=== PATIENT | female | born 1930 | race Caucasian/White ===

== ENCOUNTER 2018-06-04 10:41 | Observation (INO) | payer MEDICARE, BC ==
[2018-06-04] MEDS ORDERED: Ondansetron HCl/PF 4 MG/2 ML Vial ONE ×2 (10:48→14:15)
[2018-06-04 11:31] LABS: Band 8 % (5-11); Hemoglobin 15.2 g/dL (12.0-16.0); Lymphocytes 10 % (21-51); MDiff Complete? YES; Mean Corpuscular Volume 88.2 fL (78.0-98.0); Mean Platelet Volume 7.2 fL (7.4-10.4); Monocytes 7 % (0-10); Neutrophil 75 % (42-75); Platelet Count 159 thou/uL (130-400); RBC Distribution Width 12.6 % (11.5-14.5); Red Blood Cell (RBC) Count 5.06 mill/uL (4.20-5.40); White Blood Cell (WBC) Count 13.9 thou/uL (4.8-10.8)
[2018-06-04 11:36] LABS: ALT (SGPT) 14 U/L (8-55); AST (SGOT) 19 U/L (5-34); Albumin 4.3 g/dL (3.4-4.8); Alkaline Phosphatase 87 U/L (40-150); Anion Gap 14 mmol/L (10-20); BUN (Urea Nitrogen) 11 mg/dL (9.8-20.1); Bilirubin, Total 1.6 mg/dL (0.2-1.2); Calc. Creatinine Clearance 0 mL/min (70-130); Calcium 10.5 mg/dL (7.8-10.44); Carbon Dioxide 25 mmol/L (23-31); Chloride 104 mmol/L (98-107); Estimated GFR-MDRD 65; Globulin 3.5 g/dL (2.4-3.5); Glucose 139 mg/dL (83-110); Lipase 128 U/L (8-78); Potassium 3.8 mmol/L (3.5-5.1); Protein, Total 7.8 g/dL (6.0-8.3); Sodium 139 mmol/L (136-145)
--- NOTE | 2018-06-04 11:57 | RAD ---
ACUTE ABDOMINAL SERIES: INDICATION: Constipation. COMPARISON: Prior exam dated 03/27/10. FINDINGS: As seen on the comparison examination is a very large hiatal hernia. There is bibasilar atelectasis. Bowel gas pattern is nonspecific but without evidence of obstruction. There is a moderate amount o f retained stool within the region of the colon and rectum. There is diffuse osteopenia and scattere d degenerative change. Calcification within the left upper quadrant of the abdomen is stable and jayde picious for a small splenic artery aneurysm measuring approximately 9.6 mm. This is stable to the pr ior exam. IMPRESSION: 1. Moderate amount of retained stool within the colon. 2. Large hiatal hernia with bibasilar atelectasis. 3. Calcification within the left upper quadrant of the abdomen suspicious for a small splenic artery aneurysm. This is better seen on the CT evaluation dated 07/23/08. POS: [facility]
[2018-06-04] MEDS ORDERED: Bisacodyl 10 MG SUPP ONE (12:57)
[2018-06-04 15:18] LABS: Bilirubin Negative (Negative); Blood, Urine Small (Negative); Clarity CLEAR (Clear); Glucose, Urine (Dipstick) Negative (Negative); Leukocyte Moderate (Negative); Nitrite Negative (Negative); Protein, Urine (Dipstick) 30 mg/dL (Neg-Trace); Specific Gravity, Urine 1.015 (1.002-1.036); pH, Urine 6.5 (5.0-9.0)
[2018-06-04 15:21] LABS: Bacteria/HPF None Seen HPF (None Seen); Hyaline Casts/LPF 0-3 HYALINE CAST LPF (0-3 Hyaline); Pathc Cast-AUWi Flag 0.72 (0-2.49); WBC/HPF 21-50 HPF (0-3)
[2018-06-04 15:23] LABS: Renal Epithelial None Seen HPF (0-3); Transitional Epithelial NONE SEEN HPF (0-3)
[2018-06-04] MEDS ORDERED: Fleet Enema 133 ML BOT PR SCH (15:30)
[2018-06-04] MEDS ORDERED: cefTRIAXone\\ROCEPHIN 2 GM in Sodium Chloride 0.9% 100 ML IVPB ONE (15:45)
[2018-06-04] MEDS ORDERED: cloNIDine 0.1 MG TAB ONE (15:49)
[2018-06-04] MEDS ORDERED: Bisacodyl 10 MG SUPP PR PRN (18:02)
[2018-06-04] MEDS ORDERED: Ondansetron HCl/PF 4 MG/2 ML Vial IVP PRN (18:02)
[2018-06-04] MEDS ORDERED: Ondansetron ODT 4 MG TAB PO PRN (18:02)
[2018-06-04] MEDS ORDERED: hydrALAZINE 20 MG/ML VIAL SLOW IVP PRN (18:02)
[2018-06-04] MEDS ORDERED: Polyethylene Glycol 3350 17 GM Packet PO SCH (18:15)
[2018-06-04] MEDS ORDERED: Enoxaparin Sodium 30 MG/0.3 ML SYRINGE SC SCH (18:15)
[2018-06-04 18:18] VITALS: BMI 23.6
[2018-06-04] MEDS: Sodium Chloride 0.9% 1,000 ML IV SCH (19:55)
[2018-06-04] MEDS: Famotidine 20 MG TAB PO SCH (19:59)
[2018-06-05 04:30] LABS: #Eosinphils 0.1 thou/uL (0.0-0.7); #Lymphocytes 1.6 thou/uL (1.20-3.40); #Monocytes 0.9 thou/uL (0.11-0.59); #Neutrophils 8.4 thou/uL (1.40-6.50); %Basophils 0.2 % (0.0-1.0); %Eosinophils 1.2 % (0.0-10.0); %Lymphocytes 14.1 % (21.0-51.0); %Monocytes 8.4 % (0.0-10.0); Hemoglobin 13.1 g/dL (12.0-16.0); Mean Corpuscular HGB CONC 34.1 g/dL (32.0-36.0); Mean Corpuscular Hemoglobin 30.3 pg (27.0-31.0); Mean Corpuscular Volume 88.7 fL (78.0-98.0); Mean Platelet Volume 7.9 fL (7.4-10.4); Platelet Count 139 thou/uL (130-400); RBC Distribution Width 12.4 % (11.5-14.5); Red Blood Cell (RBC) Count 4.33 mill/uL (4.20-5.40); White Blood Cell (WBC) Count 11.1 thou/uL (4.8-10.8)
[2018-06-05 04:53] LABS: Anion Gap 17 mmol/L (10-20); BUN (Urea Nitrogen) 11 mg/dL (9.8-20.1); Calc. Creatinine Clearance 48 mL/min (70-130); Calcium 9.3 mg/dL (7.8-10.44); Carbon Dioxide 17 mmol/L (23-31); Chloride 108 mmol/L (98-107); Estimated GFR-MDRD 78; Glucose 116 mg/dL (83-110); Potassium 3.7 mmol/L (3.5-5.1); Sodium 138 mmol/L (136-145)
[2018-06-05] MEDS: Polyethylene Glycol 3350 17 GM Packet PO SCH ×2 (09:32→20:37)
[2018-06-05] MEDS: Famotidine 20 MG TAB PO SCH (09:32)
[2018-06-05] MEDS: Sodium Chloride 0.9% 1,000 ML IV SCH ×2 (09:36→23:14)
[2018-06-05] MEDS ORDERED: Amlodipine 5 MG TAB PO SCH (10:15)
[2018-06-05] MEDS: Amlodipine 5 MG TAB PO SCH (10:24)
[2018-06-05] MEDS ORDERED: Fleets Phospha Soda 45 ml Bottle PO PRN (14:09)
[2018-06-05] MEDS ORDERED: ISOVUE-370 76%-LOCM 1 ML ONE (14:55)
[2018-06-05] MEDS ORDERED: cefTRIAXone\\ROCEPHIN 1 GM in Sodium Chloride 0.9% 100 ML IVPB SCH (16:00)
[2018-06-05] MEDS ORDERED: Magnesium Citrate 300 ML BOT PO SCH (16:15)
--- NOTE | 2018-06-05 19:59 | CT ---
CT ABDOMEN AND PELVIS WITH IV CONTRAST 06/05/18 HISTORY: Constipation. Abdominal pain. Patient states bowel obstruction. History of hysterectomy as well as ap pendectomy. COMPARISON: 03/27/10. FINDINGS: There is an area of inflammatory stranding seen in the region of the central mesentery which does abu t the inferior aspect of the head and uncinate process of the pancreas and surrounds mesenteric vesse ls in this region. This could be related to focal pancreatitis. No fluid collection is seen to sugges t an abscess. There is an increased density focus seen within the gallbladder lumen which could be related to eithe r a prominent fold in the gallbladder, possibly a gallbladder calculus. There is a large hiatal hernia with the majority of the stomach above the level of the hemidiaphragm s. This was also noted on the prior exam as well as study in 2007. There is bibasilar atelectasis with tiny bilateral pleural effusions. The entire hiatal hernia/stomac h is not imaged on this exam. Calcified granulomas seen in the spleen. A subcentimeter too small to characterize hypodense lesion is again seen in the inferior pole left ki dney as well as in the mid portion right kidney. The liver, bilateral adrenal glands and decompressed urinary bladder have a normal CT appearance. There is colonic diverticulosis present. There are loops of small bowel lateral to the descending col on. Moderate amount of retained fecal material is seen involving the majority of the colon. No dilated loops of small bowel are seen. There are decompressed loops of fluid filled small bowel id entified. No free intraperitoneal gas is seen. Prominent vascular calcifications are seen in the abdominal aorta involving the iliac arteries. There is evidence of hysterectomy. Again noted is prominent Schmorl's node in the superior end plate of the L4 vertebral body. Degenerat gurdeep changes are seen in the spine. IMPRESSION: 1. Prominent area of inflammatory stranding seen inferior to the level of the pancreas which abu ts the uncinate process and head of the pancreas with the area of inflammatory stranding surrounding mesenteric vessels. The findings could potentially be related to focal pancreatitis, and correlation with laboratory values is recommended. Follow up evaluation also suggested. 2. Increased density focus within the gallbladder lumen which could be related to prominent fold in the gallbladder versus gallbladder calculus. This cannot be further evaluated on this exam. 3. Large hiatal hernia incompletely imaged. However, this large hiatal hernia was present on naatlia or exams in 2007 and 2009. 4. Tiny bilateral pleural effusions with associated bibasilar atelectasis. 5. Constipation and colonic diverticulosis.. 6. Fluid filled loops of small bowel, but no dilated loops of small bowel are present. 7. Hysterectomy. 8. Small amount of free fluid in the pelvis. POS: [facility]
[2018-06-05] MEDS: Acetaminophen 325 MG TAB PO PRN (21:58)
[2018-06-06] MEDS: Amlodipine 5 MG TAB PO SCH (07:55)
[2018-06-06] MEDS: Polyethylene Glycol 3350 17 GM Packet PO SCH (07:56)
[2018-06-06] MEDS: Acetaminophen 325 MG TAB PO PRN (07:57)
[2018-06-06] MEDS ORDERED: Famotidine 20 MG TAB PO SCH (09:00)
[2018-06-06 13:44] VITALS: BP 130/61; TEMP 97.6
--- NOTE | 2018-06-06 14:12 | PDOC.PN ---
- Subjective Encounter Start Date: 06/05/18 Encounter Start Time: 18:30 Pt upset i wasnt able to get to her earlier, no BM since the liquid one right after admit, tolerating miralax, but increased discomfort, tired a Mag Citrate and now with increased belchng. CT requested and pending No Fever, but tmax in 99.X range, no CP, no SOB. All systems reviewed and neg x as per HPI - Objective Resuscitation Status: Resuscitation Status FULL:Full Resuscitation MAR Reviewed: Yes Vital Signs & Weight: Vital Signs (12 hours) Temp Pulse Resp BP BP Pulse Ox 06/06/18 13:38 97.6 F 78 18 130/61 95 06/06/18 11:59 98.4 F 83 16 126/59 L 94 L 06/06/18 10:05 98.0 F 79 18 133/67 95 06/06/18 08:00 99.2 F 84 16 06/06/18 07:55 79 177/62 H 06/06/18 07:36 99.2 F 84 16 200/91 H 95 06/06/18 04:30 98.7 F 79 18 177/62 H 95 Weight Admit Weight 121 lb 3.2 oz Weight 121 lb 3.2 oz I&O: 06/05/18 06/06/18 06/07/18 06:59 06:59 06:59 Intake Total 1181 2210 Output Total 300 1100 600 Balance 881 1110 -600 Result Diagrams: 06/05/18 03:34 06/05/18 03:34 Radiology Reviewed by me: Yes Phys Exam - Physical Examination Constitutional: NAD HEENT: PERRLA, moist MMs, sclera anicteric, oral pharynx no lesions Neck: no nodes, no JVD, supple, full ROM Respiratory: no wheezing, no rales, no rhonchi, clear to auscultation bilateral Cardiovascular: RRR, no significant murmur Gastrointestinal: soft scant BS, nontender, distended, tympanitic Musculoskeletal: no edema, pulses present Neurological: non-focal, normal sensation, moves all 4 limbs Lymphatic: no nodes Psychiatric: normal affect, A&O x 3 Skin: no rash, normal turgor, cap refill <2 seconds Dx/Plan (1) Constipation Code(s): K59.00 - CONSTIPATION, UNSPECIFIED Status: Acute Qualifiers: Constipation type: unspecified constipation type Qualified Code(s): K59.00 - Constipation, unspecified Comment: i think may be related to hiatal hernia, CT to r/o obstruction (2) HTN (hypertension) Code(s): I10 - ESSENTIAL (PRIMARY) HYPERTENSION Status: Chronic Qualifiers: Hypertension type: essential hypertension Qualified Code(s): I10 - Essential (primary) hypertension (3) Acute cystitis Code(s): N30.00 - ACUTE CYSTITIS WITHOUT HEMATURIA Status: Acute Qualifiers: Hematuria presence: without hematuria Qualified Code(s): N30.00 - Acute cystitis without hematuria - Plan cont current plan of care, plan discussed w/ family, continue antibiotics, PT/OT , out of bed/ambulate * .
== END 2018-06-06 15:35 | disposition home or self-care (01) ==
LOC: ERS 10:41 → 2SW 17:41
PROVIDERS: ADMIT Internal Medicine Infectious Disease; ATTEND Internal Medicine Infectious Disease
DX: K59.00 Constipation, unspecified (principal); N30.00 Acute cystitis without hematuria; I10 Essential (primary) hypertension; Z88.5 Allergy status to narcotic agent; Z79.899 Other long term (current) drug therapy
CPT/HCPCS: 74022; 74177; 80048; 80053; 83690; 85025 ×2; 96361 ×3; 96365; 96366; 96372; 96375 ×2; 96376; 97139 ×2; 99285; G0378 ×2; 36415; 81003; 81015; J0360; J0696; J1650; J2405; J7050

== ENCOUNTER 2018-06-28 12:25 | Outpatient (CLI) | payer MEDICARE, BC | END 2018-06-28 12:26 | disposition home or self-care (01) | LOC: BICMAMMO 12:25 | PROVIDERS: ATTEND Family Medicine | DX: Z12.31 Encounter for screening mammogram for malignant neoplasm of breast (principal); Z80.3 Family history of malignant neoplasm of breast | CPT/HCPCS: 77063; 77067 ==

== ENCOUNTER 2018-10-01 14:34 | Inpatient (IN) | payer MEDICARE, BC ==
[2018-10-01] MEDS ORDERED: Iopamidol 370 76% 100 ML VIAL ONE (15:03)
[2018-10-01 15:32] LABS: Hemoglobin 14.5 g/dL (12.0-16.0); Mean Corpuscular HGB CONC 33.9 g/dL (32.0-36.0); Mean Corpuscular Hemoglobin 30.1 pg (27.0-31.0); Mean Corpuscular Volume 88.6 fL (78.0-98.0); Mean Platelet Volume 8.4 fL (7.4-10.4); Platelet Count 127 thou/uL (130-400); RBC Distribution Width 13.1 % (11.5-14.5); Red Blood Cell (RBC) Count 4.84 mill/uL (4.20-5.40); White Blood Cell (WBC) Count 9.9 thou/uL (4.8-10.8)
[2018-10-01 15:50] LABS: Band 49 % (5-11); Dohle Bodies SLIGHT; Lymphocytes 4 % (21-51); MDiff Complete? YES; Metamyelocyte 25 % (0-0); Monocytes 3 % (0-10); Myelocyte 3 % (0-0); Neutrophil 16 % (42-75); PLT Morphology Comment Appears Decreased; RBC Morphology Normal; Reflex for Review?? YES; Vacuoles SLIGHT
[2018-10-01 15:54] LABS: ALT (SGPT) 12 U/L (8-55); AST (SGOT) 26 U/L (5-34); Albumin 3.6 g/dL (3.4-4.8); Alkaline Phosphatase 68 U/L (40-150); Anion Gap 18 mmol/L (10-20); BUN (Urea Nitrogen) 26 mg/dL (9.8-20.1); Bilirubin, Total 1.2 mg/dL (0.2-1.2); Calc. Creatinine Clearance 0 mL/min (70-130); Calcium 9.2 mg/dL (7.8-10.44); Carbon Dioxide 18 mmol/L (23-31); Chloride 106 mmol/L (98-107); Estimated GFR-MDRD 41; Globulin 2.3 g/dL (2.4-3.5); Glucose 153 mg/dL (83-110); Potassium 3.9 mmol/L (3.5-5.1); Protein, Total 5.9 g/dL (6.0-8.3); Sodium 138 mmol/L (136-145)
--- NOTE | 2018-10-01 15:59 | RAD ---
PORTABLE AP CHEST X-RAY: 10/01/2018 HISTORY: Cough. Congestion. Shortness of breath with exertion. COMPARISON: 06/04/2018 FINDINGS: Again noted is a very large hiatal hernia with the majority of the stomach again seen above the level of the hemidiaphragms and at each lung base. There are now increased interstitial opacities seen in the region of the lingula and at the left lung base, which were not present on the prior study and a re worrisome for developing pneumonia or aspiration pneumonitis. There is atelectasis present at eac h lung base due to the large hiatal hernia. There is a questionable tiny left pleural effusion. The cardiac silhouette is at the upper limits of normal in size. Vascular calcifications are seen in th e thoracic aorta. The pulmonary vasculature is within normal limits. Osteopenia is present. IMPRESSION: 1. Interstitial and patchy parenchymal changes at the left lung base, not seen on the prior study, w orrisome for pneumonia or aspiration pneumonitis. Followup to resolution is recommended. 2. Large hiatal hernia. 3. Osteopenia. POS: [facility]
[2018-10-01 16:42] LABS: CKMB 3.2 ng/mL (0-6.6)
[2018-10-01 17:06] LABS: Bilirubin Moderate (Negative); Blood, Urine Negative (Negative); Clarity CLEAR (Clear); Glucose, Urine (Dipstick) Negative (Negative); Leukocyte Negative (Negative); Nitrite Negative (Negative); Protein, Urine (Dipstick) 30 mg/dL (Neg-Trace)
[2018-10-01 17:08] LABS: Bacteria/HPF None Seen HPF (None Seen); RBC/HPF 0-3 HPF (0-3); WBC/HPF 0-3 HPF (0-3)
--- NOTE | 2018-10-01 17:08 | CT ---
CT ARTERIOGRAM CHEST WITH IV CONTRAST AND 3D MIP IMAGING: HISTORY: Dyspnea. Chest pain. FINDINGS: There is good contrast opacification of the pulmonary arteries and the thoracic aorta with normal bra nching of the great vessels. Reactive appearing lymph nodes are scattered about the mediastinum, mos t notably at the right hilum and subcarinal level. A large hiatal hernia. Prominent atelectasis at the lung bases. No evidence of pneumothorax. Calcification throughout the arterial structures. IMPRESSION: 1. No CT evidence of pulmonary embolus. 2. Large hiatal hernia. 3. Atherosclerosis. POS: [facility]
[2018-10-01 17:12] LABS: Specific Gravity, Urine 1.049 (1.002-1.036)
[2018-10-01 17:17] LABS: Hyaline Casts/LPF >50 HYALINE CAST LPF (0-3 Hyaline); Pathc Cast-AUWi Flag 9.15 (0-2.49); Renal Epithelial 0-3 HPF (0-3)
[2018-10-01] MEDS ORDERED: Calcium Carbonate 500 MG ChewTAB PO PRN (20:20)
[2018-10-01] MEDS ORDERED: Acetaminophen 650 MG Suppository PR PRN (20:20)
[2018-10-01] MEDS ORDERED: Ondansetron ODT 4 MG TAB PO PRN (20:20)
[2018-10-01] MEDS ORDERED: Bisacodyl 5 MG TAB PO PRN (20:20)
[2018-10-01] MEDS ORDERED: Ondansetron PF 4 MG/2 ML Vial IVP PRN (20:20)
[2018-10-01] MEDS ORDERED: Acetaminophen 325 MG TAB PO PRN (20:20)
[2018-10-01] MEDS ORDERED: Zolpidem Tartrate 5 MG TAB PO PRN (20:20)
[2018-10-01] MEDS ORDERED: Sodium Chloride 0.9% 1,000 ML IV SCH (20:30)
[2018-10-01] MEDS ORDERED: Famotidine/PF 20 mg/2ml Vial SLOW IVP SCH (21:00)
--- NOTE | 2018-10-01 21:23 | HP ---
CHIEF COMPLAINT: Shortness of breath and cough. HISTORY OF PRESENT ILLNESS: This is an 88-year-old female with past medical history significant for hypertension, who is presenting with shortness of breath and productive cough. Per the patient, she started having this upper respiratory symptoms prior to the day of admission. The patient stated that she was having runny nose, congestion, and mild cough and this cough has worsened and now she is having greenish productive sputum. The patient also states that she has been having worsening shortness of breath with fever in the past 24 hours on the day of admission. The patient stated that she is feeling very sick and she is having chills, fevers, decreased appetite. At this time, the patient denies any chest pain, palpitations, abdominal pain, vomiting, diarrhea, constipation, dysuria, hematuria, hematochezia, melena. Of note, the patient was recently seen in our hospital on 06/04/2018 and the patient was diagnosed with constipation, UTI; the patient was treated and the patient improved. The patient also states that she recently fell and injured her right patella and the patient was put in a brace. Dr. Liz, who is the Orthopedics, he is the doctor that sees her and stated that she is supposed to come, follow up in three days, so that an x-ray can be captured to see the progression of the healing process for the patient. REVIEW OF SYSTEMS: Positive for cough, fever, chills, nausea, shortness of breath, otherwise as documented in the HPI. All other systems were reviewed and are negative. PAST MEDICAL HISTORY: Hypertension. FAMILY HISTORY: Reviewed and noncontributory to this visit. SURGICAL HISTORY: Appendectomy, hysterectomy. SOCIAL HISTORY: The patient denies any alcohol use, denies any illicit drugs, and patient denies any smoking history. CURRENT MEDICATIONS: The patient takes; 1. Isosorbide mononitrate 30 mg. 2. Amlodipine 2.5 mg. 3. Aspirin 81 mg. ALLERGIES: THE PATIENT IS ALLERGIC TO CODEINE. PHYSICAL EXAMINATION: VITAL SIGNS: The patient's blood pressure is 123/64, heart rate of 92, respiratory rate of 28, O2 saturation of 90, temperature of 98.7. GENERAL: The patient is alert, awake, oriented x3, not in acute distress. The patient is able to speak to me in full sentences. The patient has 2 L nasal cannula in place. The patient appears her stated age. HEENT: Normocephalic, atraumatic. Pupils are equally round and reactive to light. Extraocular movements are intact. No scleral icterus. No conjunctival pallor. Mucous membranes are dry. NECK: Trachea is midline. Full range of motion. No JVD. Supple. LUNGS: The patient has bilateral lower extremity crackles. The patient has some crackles that can be auscultated at the anterior lung yancey. CARDIAC: Positive S1 and S2. Regular rate and rhythm. No murmurs, no gallops, no rubs appreciated. ABDOMEN: Soft, nontender, and nondistended. Positive bowel sounds in all quadrants. EXTREMITIES: The patient has a right extremity brace in place. The patient has reduced range of motion at the right lower extremity. There is no edema noted bilaterally at the extremities. The patient has good pulses bilaterally at the lower extremities bilaterally. Upper extremity, 5/5 upper extremity strength. Good pulses bilaterally. No edema noted. PSYCHIATRIC: The patient is alert and oriented x3. Normal affect. NEUROLOGIC: Cranial nerves 2 through 12 grossly intact. No neurologic deficits noted. LABORATORY DATA: WBC is 9.9, hemoglobin is 14.5, hematocrit is 42.9, platelet count is 127. D-dimers of 3.66. Sodium is 138, potassium is 3.9, chloride is 106, carbon dioxide of 18, anion gap of 18, BUN is 26, creatinine is 1.23. Lactic acid of 4.0, glucose of 153, troponin of 1.090, BNP of 374.0. Urinalysis negative for leukocyte esterases and negative for nitrites. IMAGING DATA: 1. Chest x-ray shows large hiatal hernia, interstitial and patchy parenchymal change at the left lung base, not seen on the prior study, worrisome for pneumonia or aspiration pneumonitis. 2. CTA of the chest showed no pulmonary embolism. ASSESSMENT AND PLAN: This is an 88-year-old female being admitted for; 1. Community-acquired pneumonia. At this point, the patient has been started on Levaquin. We are going to start the patient on azithromycin and Rocephin at this time. We are going to continue with the sepsis protocol. We will continue patient on gentle hydration. We will give patient p.r.n. medication for pain and fever. We will follow up on cultures and we will tailor antibiotics to culture results. We will continue to work the patient up and we will give the patient a breathing treatment. 2. Non-ST elevation myocardial infarction likely due to demand ischemia. At this point, we are going to continue the patient on antibiotics and we will give the patient IV hydration. 3. Acute kidney injury likely due to dehydration. We are going to continue the patient on gentle hydration. We have ordered a renal panel, we will follow up on renal panel and we will monitor the patient's creatinine. We will hold all nephrotoxic drugs. 4. Hypertension. At this point, the patient's blood pressure is normotensive. We will monitor the patient's blood pressure closely and we will treat the patient's blood pressure accordingly. 5. Deep venous thrombosis, gastrointestinal prophylaxis. DISPOSITION: At this point, we will also get Orthopedics to come and see the patient. The patient states that her appointment to see her Orthopedic doctor was Monday, but since the patient is in the hospital, patient might likely not make it to that appointment. The patient's Orthopedics come to this hospital; therefore, we are going to consult Orthopedics to come and see the patient while the patient is here in the hospital. Job ID: [id number]
[2018-10-01 21:31] LABS: Troponin I 0.816 ng/mL (< 0.028)
[2018-10-01 22:56] LABS: Critical Call Chem Troponin I RESULT DECREASING; Troponin I 0.684 ng/mL (< 0.028)
[2018-10-01] MEDS: cefTRIAXone\\ROCEPHIN 1 GM in Sodium Chloride 0.9% 100 ML IVPB SCH (23:33)
[2018-10-02 00:18] VITALS: BMI 23.2
[2018-10-02] MEDS: Azithromycin 500 MG in Sodium Chloride 0.9% 250 ML 250 ML IVPB SCH ×2 (01:14→23:07)
[2018-10-02 05:38] LABS: Hemoglobin 12.8 g/dL (12.0-16.0); Mean Corpuscular HGB CONC 33.1 g/dL (32.0-36.0); Mean Corpuscular Hemoglobin 29.9 pg (27.0-31.0); Mean Corpuscular Volume 90.3 fL (78.0-98.0); Mean Platelet Volume 8.1 fL (7.4-10.4); Platelet Count 98 thou/uL (130-400); RBC Distribution Width 12.9 % (11.5-14.5); Red Blood Cell (RBC) Count 4.27 mill/uL (4.20-5.40)
[2018-10-02 05:58] LABS: Albumin 2.8 g/dL (3.4-4.8); Anion Gap 13 mmol/L (10-20); BUN (Urea Nitrogen) 19 mg/dL (9.8-20.1); BUN/Creatinine Ratio 22.35; Calc. Creatinine Clearance 40 mL/min (70-130); Calcium 8.9 mg/dL (7.8-10.44); Carbon Dioxide 20 mmol/L (23-31); Chloride 109 mmol/L (98-107); Estimated GFR-MDRD 63; Glucose 114 mg/dL (83-110); Potassium 3.6 mmol/L (3.5-5.1); Sodium 138 mmol/L (136-145)
[2018-10-02 06:03] LABS: Phosphorus 1.7 mg/dL (2.3-4.7)
[2018-10-02 06:16] LABS: Band 31 % (5-11); Lymphocytes 9 % (21-51); MDiff Complete? YES; Monocytes 1 % (0-10); Neutrophil 59 % (42-75); PLT Morphology Comment Appears Decreased; RBC Morphology Normal
[2018-10-02] MEDS ORDERED: Potassium Phosphate 30 MMOL in Sodium Chloride 0.9% 500 ML IVPB SCH (07:00)
[2018-10-02] MEDS ORDERED: Vancomycin HCl 1 GM in Premix Bag 1 BAG IVPB SCH (09:00)
[2018-10-02] MEDS: Multivitamin W/ Minerals 1 TAB PO SCH (09:02)
[2018-10-02] MEDS: Famotidine 20 MG TAB PO SCH (09:02)
[2018-10-02] MEDS: Amlodipine 5 MG TAB PO SCH (09:02)
[2018-10-02] MEDS: Famotidine/PF 20 mg/2ml Vial SLOW IVP SCH (09:07)
[2018-10-02] MEDS: Vancomycin HCl 750 MG in Sodium Chloride 0.9% 250 ML 250 ML IVPB SCH (09:49)
[2018-10-02] MEDS: Enoxaparin Sodium 30 MG/0.3 ML SYRINGE SC SCH (10:19)
--- NOTE | 2018-10-02 15:30 | CON ---
DATE OF CONSULTATION: 10/02/2018 REASON FOR CONSULTATION: Non-STEMI. PRIMARY BATCH DUMPER: Travon Johnston MD. HISTORY OF PRESENT ILLNESS: Ms. Mehta is a very pleasant 88-year-old white female, who comes to the hospital for shortness of breath, cough, and green sputum. She had noted that for the last 24 to 48 hours, she developed a fever with cough, green sputum. This is going around in her family members as well. She came in as she was feeling very sick, having chills and decreased appetite. Denies any chest pain, tightness, or pressure. No shortness of breath. No lightheadedness or palpitations. No syncope or presyncope. She was admitted, diagnosed with bronchitis, possible pneumonia, and troponins were drawn, which were elevated, so Cardiology has been consulted for this. PAST MEDICAL HISTORY: Hypertension. PAST SURGICAL HISTORY: 1. Appendectomy. 2. Hysterectomy. SOCIAL HISTORY: No alcohol, tobacco, or drugs. OUTPATIENT MEDICATIONS: 1. Imdur 30 mg a day. 2. Amlodipine 2.5 mg a day. 3. Aspirin 81 a day. ALLERGIES: CODEINE. FAMILY HISTORY: No early coronary artery disease. REVIEW OF SYSTEMS: A 12-point review of systems is done, is all negative unless stated in the history of present illness. PHYSICAL EXAMINATION: VITAL SIGNS: Temperature 98.8, pulse 98, respiratory rate 18, saturations 94% on 3 L, blood pressure 107/53. GENERAL: Awake, alert, and oriented x3, in no distress. HEENT: Normocephalic and atraumatic. NECK: Supple. LUNGS: Coarse breath sounds bilaterally. CARDIOVASCULAR: S1 and S2. No S3 or S4. There is a very soft grade 2/6 systolic murmur in the right upper sternal border. ABDOMEN: Soft. Positive bowel sounds. EXTREMITIES: No edema. SKIN: Warm and dry. LABORATORY DATA: Laboratory work was reviewed. CBC unremarkable except for elevated bands at 49% on admission. Chemistries unremarkable. Troponins are 1.0, 0.8, and 0.6. Albumin of 2.8, phosphorus of 1.7, normal calcium. Lactic acid was 4.0 on admission. UA had moderate bilirubin, trace ketones. EKG was reviewed. ASSESSMENT AND PLAN: 1. [id number] myocardial infarction: Likely demand ischemia from her acute infectious process. 2. Lower respiratory infection. Per Primary Team, on IV antibiotics. 3. Hypertension: Blood pressure on the low side. Hold blood pressure medications for now. PLAN: 1. We will get an echocardiogram to make sure that it looks unchanged from the one done back in June of last year. 2. Most likely demand ischemia. Treat underlying issue. 3. She does have a cardiac evaluation in November of 2016. She had a stress test that was normal with Dr. Johnston and she is being treated medically for possible coronary artery disease as she continues to be shortness of breath with exertion and that is why she was started on Imdur. We will continue for now. I asked Ms. Mehta if she would be interested in any more invasive interventions, she tells me she wants conservative therapy which I would have to agree with her, being 88 years old. Thank you for letting me to participate in the care of your patient. We will follow. Job ID: [id number]
--- NOTE | 2018-10-02 15:46 | PDOC.PN ---
- Subjective Encounter Start Date: 10/02/18 Encounter Start Time: 08:20 Pt was seen for followup re: sepsis. Denies chest pain or shortness of breath. Cough+. - Objective Resuscitation Status - Order Detail: 10/01/18 20:20 Resuscitation Status Routine Resuscitation Status: FULL: Full Resuscitation MAR Reviewed: Yes Vital Signs & Weight: Vital Signs (12 hours) Temp Pulse Resp BP Pulse Ox 10/02/18 15:18 102 H 16 10/02/18 11:55 98.5 F 98 18 107/53 L 95 10/02/18 10:46 94 L 10/02/18 10:43 86 20 10/02/18 08:18 98.8 F 90 20 131/60 95 10/02/18 04:00 99.3 F 95 19 133/63 98 Weight Weight 118 lb 14.4 oz I&O: 10/01/18 10/02/18 10/03/18 06:59 06:59 06:59 Intake Total 894 Output Total 450 Balance 444 Result Diagrams: 10/02/18 05:14 10/02/18 05:14 EKG Reviewed by me: Yes (Tele; NSR) Phys Exam - Physical Examination Constitutional: NAD HEENT: moist MMs, sclera anicteric, oral pharynx no lesions, 2+ tonsils Neck: no nodes, no JVD, supple, full ROM Respiratory: clear to auscultation bilateral Cardiovascular: RRR, no rub S1, S2 Gastrointestinal: soft, non-tender, no distention, positive bowel sounds Neurological: moves all 4 limbs Psychiatric: normal affect, A&O x 3 Dx/Plan (1) Sepsis Code(s): A41.9 - SEPSIS, UNSPECIFIED ORGANISM Status: Acute Comment: likely due to pneumonia and bacteremia (2) Pneumonia Code(s): J18.9 - PNEUMONIA, UNSPECIFIED ORGANISM Status: Acute Comment: continue IV antibiotics as below (3) Bacteremia Code(s): R78.81 - BACTEREMIA Status: Acute Comment: add IV vancomycin to ceftriaxone and azithromycin (4) Demand ischemia of myocardium Code(s): I24.8 - OTHER FORMS OF ACUTE ISCHEMIC HEART DISEASE Status: Acute Comment: likely type II AMI (demand ischemia), check 2D echo (5) HTN (hypertension) Code(s): I10 - ESSENTIAL (PRIMARY) HYPERTENSION Status: Chronic Qualifiers: Hypertension type: essential hypertension Qualified Code(s): I10 - Essential (primary) hypertension Comment: controlled - Plan * . Review of Systems - Review of Systems Constitutional: weakness. negative: fever, chills, sweats, malaise Respiratory: Cough, Sputum. negative: Dry, Shortness of Breath, Hemoptysis, SOB with Excertion, Pleuritic Pain, Wheezing Cardiovascular: negative: chest pain, palpitations, orthopnea, paroxysmal nocturnal dyspnea, edema, light headedness Gastrointestinal: negative: Nausea, Vomiting, Abdominal Pain, Diarrhea, Constipation, Melena, Hematochezia Genitourinary: negative: Dysuria, Frequency, Incontinence, Hematuria, Retention - Medications/Allergies Allergies/Adverse Reactions: Allergies Allergy/AdvReac Type Severity Reaction Status Date / Time codeine Allergy Stomach Verified 10/02/18 01:44 Ache Medications: Current Medications Acetaminophen (Tylenol) 650 mg PO Q4H PRN PRN Reason: Headache/Fever/Mild Pain (1-3) Acetaminophen (Tylenol) 650 mg W[place] Q4H PRN PRN Reason: Headache/Fever/Mild Pain (1-3) Albuterol/Ipratropium (Duoneb) 3 ml NEB [id number] [facility] Last Admin: 10/02/18 15:18 Dose: 3 ml Amlodipine Besylate (Norvasc) 2.5 mg PO DAILY [facility] Last Admin: 10/02/18 09:02 Dose: 2.5 mg Aspirin (Aspirin Chewable) 81 mg PO DAILY [facility] Last Admin: 10/02/18 09:02 Dose: 81 mg Bisacodyl (Dulcolax) 10 mg PO DAILYPRN PRN PRN Reason: Constipation Calcium Carbonate (Tums) 1,000 mg PO Q4H PRN PRN Reason: Heartburn or Indigestion Cholecalciferol (Vitamin D3) 2,000 units PO DAILY [facility] Last Admin: 10/02/18 09:03 Dose: 2,000 units Enoxaparin Sodium (Lovenox) 30 mg SC 0900 [facility] Last Admin: 10/02/18 10:19 Dose: 30 mg Famotidine (Pepcid) 20 mg PO DAILY [facility] Last Admin: 10/02/18 09:02 Dose: 20 mg Famotidine (Pepcid) 20 mg SLOW IVP DAILY [facility] Last Admin: 10/02/18 09:07 Dose: Not Given Guaifenesin/Dextromethorphan (Robitussin Dm) 15 ml PO Q4H PRN PRN Reason: Cough Azithromycin 500 mg/ Sodium (Chloride) 250 mls @ 250 mls/hr IVPB Q24HR [facility] Last Admin: 10/02/18 01:14 Dose: 250 mls Ceftriaxone Sodium 1 gm/ (Sodium Chloride) 100 mls @ 200 mls/hr IVPB Q24HR [facility] Last Admin: 10/01/18 23:33 Dose: 100 mls Vancomycin HCl 750 mg/ Sodium (Chloride) 250 mls @ 250 mls/hr IVPB Q24HR [facility] Last Admin: 10/02/18 09:49 Dose: 250 mls Iron/Minerals/Multivitamins (Theragran M) 1 tab PO DAILY [facility] Last Admin: 10/02/18 09:02 Dose: 1 tab Isosorbide Mononitrate (Imdur Er) 30 mg PO DAILY [facility] Last Admin: 10/02/18 09:03 Dose: 30 mg Miscellaneous Medication (Pharmacy To Dose) 1 each IVPB ASDIR [facility] Ondansetron HCl (Zofran Odt) 4 mg PO Q6H PRN PRN Reason: Nausea/Vomiting Ondansetron HCl (Zofran) 4 mg IVP Q6H PRN PRN Reason: Nausea/Vomiting Senna/Docusate Sodium (Senokot S) 2 tab PO BIDPRN PRN PRN Reason: Constipation Sodium Chloride (Flush - Normal Saline) 10 ml IVF Q12HR [facility] Last Admin: 10/02/18 09:07 Dose: Not Given Sodium Chloride (Flush - Normal Saline) 10 ml IVF PRN PRN PRN Reason: Saline Flush Zolpidem Tartrate (Ambien) 5 mg PO HSPRN PRN PRN Reason: Insomnia
--- NOTE | 2018-10-02 17:35 | RAD ---
FOUR VIEWS RIGHT KNEE: 10/02/18 HISTORY: Followup patellar fracture from four weeks ago. COMPARISON: None available. FINDINGS: There is a comminuted fracture involving the patella with transverse as well as what appears to be lo ngitudinal fracture planes through the patella. Transverse fracture fragments of the mid portion of t he patella demonstrates separation of fracture fragments measuring approximately 6 mm. No additional fracture is seen and there is no dislocation. Osteopenia is noted. Vascular calcifications are seen a bout the knee. IMPRESSION: Comminuted and fracture involving the patella. Prior study is not available for direct pamela elation to evaluate for stability of the patellar fracture. However, no significant callus formation is seen to suggest interval healing. POS: [facility]
[2018-10-02] MEDS: Guaifenesin DM 100-10/5 ML UDCUP PO PRN (22:17)
[2018-10-02] MEDS: cefTRIAXone\\ROCEPHIN 1 GM in Sodium Chloride 0.9% 100 ML IVPB SCH (23:06)
[2018-10-03] MEDS: Famotidine 20 MG TAB PO SCH (08:00)
[2018-10-03] MEDS: Amlodipine 5 MG TAB PO SCH (08:00)
[2018-10-03] MEDS: Enoxaparin Sodium 30 MG/0.3 ML SYRINGE SC SCH (08:00)
[2018-10-03] MEDS: Famotidine/PF 20 mg/2ml Vial SLOW IVP SCH (08:01)
[2018-10-03] MEDS: Multivitamin W/ Minerals 1 TAB PO SCH (08:01)
[2018-10-03] MEDS: Vancomycin HCl 750 MG in Sodium Chloride 0.9% 250 ML 250 ML IVPB SCH (09:33)
[2018-10-03] MEDS: Guaifenesin DM 100-10/5 ML UDCUP PO PRN ×2 (09:34→14:53)
--- NOTE | 2018-10-03 10:46 | PDOC.CTH ---
Cardiology Progress Note - Subjective No complaints. Feels much better today. - Objective Vital Signs Temp Pulse Resp BP Pulse Ox 10/03/18 10:00 94 18 96 10/03/18 07:55 98.6 F 94 18 149/66 H 94 L 10/03/18 06:56 101 H 18 94 L 10/03/18 04:00 98.7 F 90 20 140/60 97 10/03/18 01:45 105 H 18 93 L Weight 122 lb 9.6 oz 10/02/18 10/03/18 10/04/18 06:59 06:59 06:59 Intake Total 894 610 Output Total 450 1050 Balance 444 -440 - Physical Examination General/Neuro: alert & oriented x3 Neck: no JVD present Lungs: CTA Heart: RRR Abdomen: NT/ND, soft Extremities: other: (no edema) - Labs Result Diagrams: 10/02/18 05:14 10/02/18 05:14 Troponin/CKMB CK-MB (CK-2) 3.2 ng/mL (0-6.6) 10/01/18 15:15 Troponin I 0.684 ng/mL (< 0.028) H* 10/01/18 21:58 - Assessment/Plan 1. PNA 2. NSTEMI 3. HTN Doing well. Continue antibiotics. Continue nitrates. Patient has declined intervention in the past and still does not want aggressive treatment. Agree with plan of medical mgmt given current sepsis. Ok for discharge from cardio standpoint when cleared from primary team perspective.
--- NOTE | 2018-10-03 14:24 | PDOC.PN ---
- Subjective Encounter Start Date: 10/03/18 Encounter Start Time: 09:20 Pt seen for followup re: pneumonia. feels better. No fevers or chills. Cough+ . - Objective Resuscitation Status - Order Detail: 10/01/18 20:20 Resuscitation Status Routine Resuscitation Status: FULL: Full Resuscitation MAR Reviewed: Yes Vital Signs & Weight: Vital Signs (12 hours) Temp Pulse Pulse Pulse Resp BP BP 10/03/18 14:09 99 16 10/03/18 11:17 102 H 113 H 147/67 H 185/83 H 10/03/18 11:08 97.8 F 100 16 10/03/18 10:00 94 18 10/03/18 07:55 98.6 F 94 18 10/03/18 06:56 101 H 18 10/03/18 04:00 98.7 F 90 20 BP Pulse Ox 10/03/18 14:09 96 10/03/18 11:17 10/03/18 11:08 137/65 100 10/03/18 10:00 96 10/03/18 07:55 149/66 H 94 L 10/03/18 06:56 94 L 10/03/18 04:00 140/60 97 Weight Weight 122 lb 9.6 oz I&O: 10/02/18 10/03/18 10/04/18 06:59 06:59 06:59 Intake Total 894 610 Output Total 450 1050 Balance 444 -440 Result Diagrams: 10/02/18 05:14 10/02/18 05:14 EKG Reviewed by me: Yes (Tele: NSR) Phys Exam - Physical Examination Constitutional: NAD HEENT: moist MMs, sclera anicteric, oral pharynx no lesions, 2+ tonsils Neck: no nodes, no JVD, supple, full ROM Respiratory: clear to auscultation bilateral Cardiovascular: RRR, no rub S1, S2 Gastrointestinal: soft Neurological: moves all 4 limbs Psychiatric: normal affect, A&O x 3 Dx/Plan (1) Pneumonia Code(s): J18.9 - PNEUMONIA, UNSPECIFIED ORGANISM Status: Acute Comment: continue IV ceftriaxone and azithromycin, discontinue IV vancomycin (2) Bacteremia Code(s): R78.81 - BACTEREMIA Status: Acute Comment: continue IV ceftriaxone and azithromycin, discontinue IV vancomycin (3) Demand ischemia of myocardium Code(s): I24.8 - OTHER FORMS OF ACUTE ISCHEMIC HEART DISEASE Status: Acute Comment: likely type II AMI (demand ischemia), 2D echo pending (4) HTN (hypertension) Code(s): I10 - ESSENTIAL (PRIMARY) HYPERTENSION Status: Chronic Qualifiers: Hypertension type: essential hypertension Qualified Code(s): I10 - Essential (primary) hypertension Comment: controlled (5) Sepsis Code(s): A41.9 - SEPSIS, UNSPECIFIED ORGANISM Status: Resolved - Plan * . Review of Systems - Review of Systems Constitutional: negative: fever, chills, sweats, weakness, malaise Respiratory: Cough, Sputum. negative: Dry, Shortness of Breath, Hemoptysis, SOB with Excertion, Pleuritic Pain, Wheezing Cardiovascular: negative: chest pain, palpitations, orthopnea, paroxysmal nocturnal dyspnea, edema, light headedness Gastrointestinal: negative: Nausea, Vomiting, Abdominal Pain, Diarrhea, Constipation, Melena, Hematochezia Genitourinary: negative: Dysuria, Frequency, Incontinence, Hematuria, Retention - Medications/Allergies Allergies/Adverse Reactions: Allergies Allergy/AdvReac Type Severity Reaction Status Date / Time codeine Allergy Stomach Verified 10/02/18 01:44 Ache Medications: Current Medications Acetaminophen (Tylenol) 650 mg PO Q4H PRN PRN Reason: Headache/Fever/Mild Pain (1-3) Acetaminophen (Tylenol) 650 mg GA Q4H PRN PRN Reason: Headache/Fever/Mild Pain (1-3) Albuterol/Ipratropium (Duoneb) 3 ml NEB [id number] [facility] Last Admin: 10/03/18 14:09 Dose: 3 ml Amlodipine Besylate (Norvasc) 2.5 mg PO DAILY [facility] Last Admin: 10/03/18 08:00 Dose: 2.5 mg Aspirin (Aspirin Chewable) 81 mg PO DAILY [facility] Last Admin: 10/03/18 08:00 Dose: 81 mg Bisacodyl (Dulcolax) 10 mg PO DAILYPRN PRN PRN Reason: Constipation Calcium Carbonate (Tums) 1,000 mg PO Q4H PRN PRN Reason: Heartburn or Indigestion Cholecalciferol (Vitamin D3) 2,000 units PO DAILY [facility] Last Admin: 10/03/18 08:00 Dose: 2,000 units Enoxaparin Sodium (Lovenox) 30 mg SC 0900 [facility] Last Admin: 10/03/18 08:00 Dose: 30 mg Famotidine (Pepcid) 20 mg PO DAILY [facility] Last Admin: 10/03/18 08:00 Dose: 20 mg Famotidine (Pepcid) 20 mg SLOW IVP DAILY [facility] Last Admin: 10/03/18 08:01 Dose: Not Given Guaifenesin/Dextromethorphan (Robitussin Dm) 15 ml PO Q4H PRN PRN Reason: Cough Last Admin: 10/03/18 09:34 Dose: 15 ml Azithromycin 500 mg/ Sodium (Chloride) 250 mls @ 250 mls/hr IVPB Q24HR [facility] Last Admin: 10/02/18 23:07 Dose: 250 mls Ceftriaxone Sodium 1 gm/ (Sodium Chloride) 100 mls @ 200 mls/hr IVPB Q24HR [facility] Last Admin: 10/02/18 23:06 Dose: 100 mls Vancomycin HCl 750 mg/ Sodium (Chloride) 250 mls @ 250 mls/hr IVPB Q24HR [facility] Last Admin: 10/03/18 09:33 Dose: 250 mls Iron/Minerals/Multivitamins (Theragran M) 1 tab PO DAILY [facility] Last Admin: 10/03/18 08:01 Dose: 1 tab Isosorbide Mononitrate (Imdur Er) 30 mg PO DAILY [facility] Last Admin: 10/03/18 08:01 Dose: 30 mg Miscellaneous Medication (Pharmacy To Dose) 1 each IVPB ASDIR [facility] Ondansetron HCl (Zofran Odt) 4 mg PO Q6H PRN PRN Reason: Nausea/Vomiting Ondansetron HCl (Zofran) 4 mg IVP Q6H PRN PRN Reason: Nausea/Vomiting Senna/Docusate Sodium (Senokot S) 2 tab PO BIDPRN PRN PRN Reason: Constipation Sodium Chloride (Flush - Normal Saline) 10 ml IVF Q12HR [facility] Last Admin: 10/03/18 08:01 Dose: 10 ml Sodium Chloride (Flush - Normal Saline) 10 ml IVF PRN PRN PRN Reason: Saline Flush Zolpidem Tartrate (Ambien) 5 mg PO HSPRN PRN PRN Reason: Insomnia
--- NOTE | 2018-10-03 14:51 | PQF ---
CLINICAL DOCUMENTATION IMPROVEMENT CLARIFICATION FORM: ICD-10 Updated PLEASE DO AN ADDENDUM TO THE PROGRESS NOTE WITH ANY DOCUMENTATION UPDATES OR ADDITIONS AND CARRY THROUGH TO DC SUMMARY. THANK YOU. DATE: 10/03/2018 ATTN: Dr. Potter Please exercise your independent, professional judgment in responding to the clarification form. Clinical indicators are provided on the bottom of this form for your review Please check appropriate box(s): [ ] Acute Respiratory Failure [ ] with Hypoxia [ ] with Hypercapnia [ ] Acute On Chronic Respiratory Failure: [ ] with Hypoxia [ ] with Hypercapnia [ ] Acute Respiratory Failure due to: [ ] Other diagnosis [ ] Unable to determine In addition, please specify: Present on Admission (POA): [ ] Yes [ ] No [ ] Unable to determine For continuity of documentation, please document condition throughout progress notes and discharge summary. Thank You. CLINICAL INDICATORS - SIGNS / SYMPTOMS / LABS ER RECORD 10/01: O2 sat 90 on Room Air. Resp. 28 O2 sat 91 on 3L Oxygen O2 sat 94-95 on 4L Oxygen Resp. Assessment 10/02/2018: O2 Sat 94 NC 4L Oxygen RISKS: H&P 10/01: 88 yrs old. Community - acquired pneumonia. RAMY. Hypertension. TREATMENT: ORDER 10/01/18: Resp: O2 to keep sats ORDER 10/01/18: Resp: CPAP/BiPAP administer when pt desaturates. ORDER 09/3118: Duoneb Q4 hr Thank you, Sonia (This form is maintained as a part of the permanent medical record) 2015 [employer] All Rights Reserved Sonia Aponte RN, BSN [email or web address] Office: [phone] [facility]
[2018-10-03] MEDS: cefTRIAXone\\ROCEPHIN 1 GM in Sodium Chloride 0.9% 100 ML IVPB SCH (22:28)
[2018-10-03] MEDS: Azithromycin 500 MG in Sodium Chloride 0.9% 250 ML 250 ML IVPB SCH (23:24)
[2018-10-04] MEDS: Amlodipine 5 MG TAB PO SCH (08:15)
[2018-10-04] MEDS: Enoxaparin Sodium 30 MG/0.3 ML SYRINGE SC SCH (08:16)
[2018-10-04] MEDS: Famotidine/PF 20 mg/2ml Vial SLOW IVP SCH (08:16)
[2018-10-04] MEDS: Famotidine 20 MG TAB PO SCH (08:16)
[2018-10-04] MEDS: Multivitamin W/ Minerals 1 TAB PO SCH (08:16)
--- NOTE | 2018-10-04 15:27 | PDOC.PN ---
- Subjective Encounter Start Date: 10/04/18 Encounter Start Time: 08:00 Pt seen for followup re: pneumonia. denies chest pain. c/o generalized weakness. Cough+. - Objective Resuscitation Status - Order Detail: 10/01/18 20:20 Resuscitation Status Routine Resuscitation Status: FULL: Full Resuscitation MAR Reviewed: Yes Vital Signs & Weight: Vital Signs (12 hours) Temp Pulse Resp BP BP Pulse Ox 10/04/18 13:51 110 H 22 H 10/04/18 10:30 100 16 10/04/18 08:15 87 145/78 H 10/04/18 07:18 98.0 F 87 18 145/78 H 96 10/04/18 07:10 100 10/04/18 04:00 99.3 F 82 18 132/77 93 L Weight Weight 122 lb 9.6 oz I&O: 10/03/18 10/04/18 10/05/18 06:59 06:59 06:59 Intake Total 610 550 Output Total 1050 Balance -440 550 Result Diagrams: 10/02/18 05:14 10/02/18 05:14 Additional Labs: labs reviewed by me Phys Exam - Physical Examination Constitutional: NAD HEENT: moist MMs Neck: supple Respiratory: clear to auscultation bilateral Cardiovascular: RRR Gastrointestinal: soft right knee brace Neurological: moves all 4 limbs Psychiatric: normal affect Dx/Plan (1) Pneumonia Code(s): J18.9 - PNEUMONIA, UNSPECIFIED ORGANISM Status: Acute Comment: continue IV ceftriaxone. Switch to oral antibiotics in 24-48 hours depending on discharge disposition. (2) Bacteremia Code(s): R78.81 - BACTEREMIA Status: Acute Comment: continue IV ceftriaxone (3) Physical deconditioning Code(s): R53.81 - OTHER MALAISE Status: Acute Comment: walking program following pt (4) Demand ischemia of myocardium Code(s): I24.8 - OTHER FORMS OF ACUTE ISCHEMIC HEART DISEASE Status: Acute Comment: likely type II AMI (demand ischemia), 2D echo report noted (5) HTN (hypertension) Code(s): I10 - ESSENTIAL (PRIMARY) HYPERTENSION Status: Chronic Qualifiers: Hypertension type: essential hypertension Qualified Code(s): I10 - Essential (primary) hypertension Comment: controlled (6) Sepsis Code(s): A41.9 - SEPSIS, UNSPECIFIED ORGANISM Status: Resolved (7) Acute respiratory failure with hypoxia Code(s): J96.01 - ACUTE RESPIRATORY FAILURE WITH HYPOXIA Status: Resolved Comment: present on admission, now resolved - Plan * . Review of Systems - Review of Systems Constitutional: weakness. negative: fever, chills, sweats, malaise Respiratory: Cough, Sputum. negative: Dry, Shortness of Breath, Hemoptysis, SOB with Excertion, Pleuritic Pain, Wheezing Cardiovascular: negative: chest pain, palpitations, orthopnea, paroxysmal nocturnal dyspnea, edema, light headedness - Medications/Allergies Allergies/Adverse Reactions: Allergies Allergy/AdvReac Type Severity Reaction Status Date / Time codeine Allergy Stomach Verified 10/02/18 01:44 Ache Medications: Current Medications Acetaminophen (Tylenol) 650 mg PO Q4H PRN PRN Reason: Headache/Fever/Mild Pain (1-3) Acetaminophen (Tylenol) 650 mg [place] Q4H PRN PRN Reason: Headache/Fever/Mild Pain (1-3) Albuterol/Ipratropium (Duoneb) 3 ml NEB [id number] [facility] Last Admin: 10/04/18 13:51 Dose: 3 ml Amlodipine Besylate (Norvasc) 2.5 mg PO DAILY [facility] Last Admin: 10/04/18 08:15 Dose: 2.5 mg Aspirin (Aspirin Chewable) 81 mg PO DAILY [facility] Last Admin: 10/04/18 08:15 Dose: 81 mg Bisacodyl (Dulcolax) 10 mg PO DAILYPRN PRN PRN Reason: Constipation Calcium Carbonate (Tums) 1,000 mg PO Q4H PRN PRN Reason: Heartburn or Indigestion Cholecalciferol (Vitamin D3) 2,000 units PO DAILY [facility] Last Admin: 10/04/18 08:15 Dose: 2,000 units Enoxaparin Sodium (Lovenox) 30 mg SC 0900 [facility] Last Admin: 10/04/18 08:16 Dose: 30 mg Famotidine (Pepcid) 20 mg PO DAILY [facility] Last Admin: 10/04/18 08:16 Dose: 20 mg Famotidine (Pepcid) 20 mg SLOW IVP DAILY [facility] Last Admin: 10/04/18 08:16 Dose: Not Given Guaifenesin/Dextromethorphan (Robitussin Dm) 15 ml PO Q4H PRN PRN Reason: Cough Last Admin: 10/03/18 14:53 Dose: 15 ml Azithromycin 500 mg/ Sodium (Chloride) 250 mls @ 250 mls/hr IVPB Q24HR [facility] Last Admin: 10/03/18 23:24 Dose: 250 mls Ceftriaxone Sodium 1 gm/ (Sodium Chloride) 100 mls @ 200 mls/hr IVPB Q24HR [facility] Last Admin: 10/03/18 22:28 Dose: 100 mls Iron/Minerals/Multivitamins (Theragran M) 1 tab PO DAILY [facility] Last Admin: 10/04/18 08:16 Dose: 1 tab Isosorbide Mononitrate (Imdur Er) 30 mg PO DAILY [facility] Last Admin: 10/04/18 08:16 Dose: 30 mg Miscellaneous Medication (Pharmacy To Dose) 1 each IVPB ASDIR [facility] Ondansetron HCl (Zofran Odt) 4 mg PO Q6H PRN PRN Reason: Nausea/Vomiting Ondansetron HCl (Zofran) 4 mg IVP Q6H PRN PRN Reason: Nausea/Vomiting Senna/Docusate Sodium (Senokot S) 2 tab PO BIDPRN PRN PRN Reason: Constipation Sodium Chloride (Flush - Normal Saline) 10 ml IVF Q12HR [facility] Last Admin: 10/04/18 08:16 Dose: 10 ml Sodium Chloride (Flush - Normal Saline) 10 ml IVF PRN PRN PRN Reason: Saline Flush Zolpidem Tartrate (Ambien) 5 mg PO HSPRN PRN PRN Reason: Insomnia
[2018-10-04] MEDS: Senokot S 8.6-50 MG TAB PO PRN (16:42)
[2018-10-04] MEDS: cefTRIAXone\\ROCEPHIN 1 GM in Sodium Chloride 0.9% 100 ML IVPB SCH (22:02)
[2018-10-04] MEDS: Azithromycin 500 MG in Sodium Chloride 0.9% 250 ML 250 ML IVPB SCH (23:25)
[2018-10-05 07:42] LABS: #Lymphocytes 1.7 thou/uL (1.20-3.40); #Monocytes 0.7 thou/uL (0.11-0.59); #Neutrophils 5.4 thou/uL (1.40-6.50); %Basophils 0.1 % (0.0-1.0); %Eosinophils 0.6 % (0.0-10.0); %Lymphocytes 21.2 % (21.0-51.0); %Monocytes 8.8 % (0.0-10.0); %Neutrophils 69.3 % (42.0-75.0); Hemoglobin 12.3 g/dL (12.0-16.0); Mean Corpuscular HGB CONC 32.9 g/dL (32.0-36.0); Mean Corpuscular Hemoglobin 29.2 pg (27.0-31.0); Mean Corpuscular Volume 88.7 fL (78.0-98.0); Mean Platelet Volume 7.6 fL (7.4-10.4); Platelet Count 161 thou/uL (130-400); RBC Distribution Width 12.8 % (11.5-14.5); White Blood Cell (WBC) Count 7.8 thou/uL (4.8-10.8)
[2018-10-05 07:56] LABS: Anion Gap 14 mmol/L (10-20); BUN (Urea Nitrogen) 7 mg/dL (9.8-20.1); Calc. Creatinine Clearance 54 mL/min (70-130); Calcium 9.5 mg/dL (7.8-10.44); Carbon Dioxide 23 mmol/L (23-31); Chloride 108 mmol/L (98-107); Estimated GFR-MDRD 88; Glucose 109 mg/dL (83-110); Sodium 142 mmol/L (136-145)
[2018-10-05] MEDS: Famotidine 20 MG TAB PO SCH (08:20)
[2018-10-05] MEDS: Multivitamin W/ Minerals 1 TAB PO SCH (08:20)
[2018-10-05] MEDS: Senokot S 8.6-50 MG TAB PO PRN (08:20)
[2018-10-05] MEDS: Amlodipine 5 MG TAB PO SCH ×2 (08:20→09:17)
[2018-10-05] MEDS: Enoxaparin Sodium 30 MG/0.3 ML SYRINGE SC SCH (08:21)
[2018-10-05] MEDS: Famotidine/PF 20 mg/2ml Vial SLOW IVP SCH (08:21)
[2018-10-05] MEDS ORDERED: Amlodipine 5 MG TAB PO SCH (08:53)
--- NOTE | 2018-10-05 09:11 | PRG ---
DATE OF SERVICE: SUBJECTIVE: The patient is seen and examined at the bedside. She seems to be doing better. She still coughs. From time to time she brings some yellowish phlegm, but most of the time it is dry cough. She did physical therapy session yesterday. OBJECTIVE: VITAL SIGNS: Blood pressure is 158/66, pulse is 96, temperature 98.1, O2 saturation is 94 on 2 L by nasal cannula. Her respirations 16. MICROBIOLOGY: No new findings. IMPRESSION: 1. Pneumonia. 2. Bacteremia with Streptococcus. 3. Physical deconditioning. 4. Demand ischemia on myocardium. 5. Hypertension. 6. Sepsis, resolved. 7. Acute respiratory failure with hypoxia, resolved. PLAN: To switch her from ceftriaxone and azithromycin to levofloxacin 500 mg p.o. daily. We will talk to the patient's daughter. We would like the patient to go to [facility] facility for PT and OT for a week or two before she can be transitioned to home health support at her private residence. She lives alone. We believe this is the best way to manage her current problem. I am going to go up on her amlodipine to 5 mg daily since her blood pressure is still running on a higher side. Job ID: [id number]
[2018-10-05] MEDS: Potassium Chloride 20 MEQ TAB PO SCH ×2 (09:17→14:10)
[2018-10-05] MEDS ORDERED: Ketorolac Tromethamine 30 MG/ML VIAL IVP PRN (20:57)
[2018-10-05] MEDS: Guaifenesin DM 100-10/5 ML UDCUP PO PRN (21:10)
[2018-10-05] MEDS: cefTRIAXone\\ROCEPHIN 1 GM in Sodium Chloride 0.9% 100 ML IVPB SCH (22:00)
[2018-10-05] MEDS: Azithromycin 500 MG in Sodium Chloride 0.9% 250 ML 250 ML IVPB SCH (23:29)
[2018-10-06] MEDS: Multivitamin W/ Minerals 1 TAB PO SCH (08:56)
[2018-10-06] MEDS: Enoxaparin Sodium 30 MG/0.3 ML SYRINGE SC SCH (08:56)
[2018-10-06] MEDS: Famotidine 20 MG TAB PO SCH (08:56)
[2018-10-06] MEDS: Famotidine/PF 20 mg/2ml Vial SLOW IVP SCH (08:58)
[2018-10-06] MEDS: Amlodipine 5 MG TAB PO SCH (08:58)
--- NOTE | 2018-10-06 10:16 | PRG ---
DATE OF SERVICE: 10/06/2018 SUBJECTIVE: The patient is seen and examined at the bedside. She had some pain in her low retrosternal area at night. Apparently, she has hiatal hernia and gets this pain on and off. OBJECTIVE: VITAL SIGNS: Blood pressure is 144/75, pulse is 92, temperature is 98.0, respiratory rate is 18, and O2 saturation is 90 on the 1.5 L by nasal cannula. HEENT: Head is atraumatic and normocephalic. Eyes are PERRLA. Sclerae are nonicteric. Oral mucosa is moist. NECK: Supple. LUNGS: Few crackles at both bases. Not significant. No S3. No S4. No any murmur. ABDOMEN: Soft, nontender. Bowel sounds are present. No organomegaly. EXTREMITIES: No clubbing, cyanosis, or edema. She has right leg hand immobilizer. NEUROLOGIC: She is alert and oriented x4. There is no any motor deficits. LABORATORY DATA: None today. IMPRESSION: 1. Pneumonia, resolved. 2. Physical deconditioning. 3. Bacteremia with Streptococcus. 4. Demand ischemia on myocardium. 5. Hypertension. 6. Sepsis, resolved. 7. Hypokalemia, treated. 8. Acute respiratory failure with hypoxia, resolved. PLAN: Plan is to continue her levofloxacin 500 mg p.o. daily. Apparently, her daughter yesterday made decision about sending her to long term facility for PT and OT. We are going to check her BMP today since her potassium was low yesterday at 3.0 and she had two doses of potassium chloride. Her blood pressure seems to be doing better since we increased the dose of amlodipine to 5 mg once a day. We will continue PT and OT. Job ID: [id number]
[2018-10-06 10:39] LABS: Anion Gap 12 mmol/L (10-20); BUN (Urea Nitrogen) 7 mg/dL (9.8-20.1); Calc. Creatinine Clearance 50 mL/min (70-130); Calcium 10.2 mg/dL (7.8-10.44); Carbon Dioxide 24 mmol/L (23-31); Chloride 107 mmol/L (98-107); Estimated GFR-MDRD 79; Glucose 149 mg/dL (83-110); Potassium 4.1 mmol/L (3.5-5.1); Sodium 139 mmol/L (136-145)
[2018-10-07] MEDS: Senokot S 8.6-50 MG TAB PO PRN (08:24)
[2018-10-07] MEDS: Multivitamin W/ Minerals 1 TAB PO SCH (08:24)
[2018-10-07] MEDS: Famotidine 20 MG TAB PO SCH (08:24)
[2018-10-07] MEDS: Amlodipine 5 MG TAB PO SCH (08:24)
[2018-10-07] MEDS: Famotidine/PF 20 mg/2ml Vial SLOW IVP SCH (08:25)
[2018-10-07] MEDS: Enoxaparin Sodium 30 MG/0.3 ML SYRINGE SC SCH (08:25)
[2018-10-07] MEDS ORDERED: Polyethylene Glycol 3350 17 GM Packet PO PRN (10:40)
[2018-10-07] MEDS ORDERED: Sodium Chloride 0.65% Nasal 44 ML BOT EA NARE PRN ×2 (10:41→10:45)
--- NOTE | 2018-10-07 13:21 | PRG ---
DATE OF SERVICE: 10/07/2018 SUBJECTIVE: The patient is seen and examined at the bedside. She has some complaints about her nasal passages on the left side being stepped up after the breathing treatment. Otherwise, she is feeling good. OBJECTIVE: VITAL SIGNS: Blood pressure is 152/81, pulse is 87, temperature 98.6, O2 saturation is 93% on room air. HEENT: Head is atraumatic and normocephalic. Eyes are PERRLA. Sclerae are nonicteric. Oral mucosa is moist. NECK: Supple. LUNGS: Bilateral crackles at both bases present. HEART: S1 and S2 normal. No S3. No S4. ABDOMEN: Soft, nontender. EXTREMITIES: Right lower extremity in the immobilizer. NEUROLOGIC: She is alert and oriented x4. There is no any motor or sensory deficits. LABORATORY DATA: None today. IMPRESSION: 1. Pneumonia, resolved. 2. Physical deconditioning. 3. Bacteremia with Streptococcus. 4. Demand ischemia on myocardium. 5. Hypertension. 6. Sepsis, resolved. 7. Hypokalemia, treated. 8. Acute respiratory failure with hypoxia, resolved. PLAN: We will use some normal saline for her left nostril since she has some congestion on the left side. We will continue her levofloxacin 500 mg twice a day. Her daughter made decision to do the assisted facility for her deconditioning for PT and OT. Also, we are basically awaiting for the transfer to the facility. Job ID: [id number]
[2018-10-07 16:12] VITALS: BP 122/67; TEMP 98.3
--- NOTE | 2018-10-08 04:49 | DIS ---
DATE OF ADMISSION: 10/01/2018 DATE OF DISCHARGE: 10/07/2018 DIAGNOSES AT THE TIME OF DISCHARGE: 1. Pneumonia, resolved. 2. Streptococcal bacteremia secondary to pneumonia, resolved. 3. Physical deconditioning. 4. Non ST-elevation myocardial infarction. 5. Hypertension. 6. Sepsis, resolved. 7. Hypokalemia, treated. 8. Acute respiratory failure with hypoxia, resolved. CONSULTANTS: Andres Copeland MD, Cardiology Service. HOSPITAL COURSE: The patient is an 88-year-old female with past medical history significant for hypertension, who presented with shortness of breath and productive cough of just 1 day duration. She had a runny nose, congestion and mild cough, which got worse. She had some chills and fever, decreased appetite. She felt very sick. Denied any chest pain, palpitation, abdominal pain, vomiting, diarrhea, constipation, dysuria, hematuria, hematochezia, or melena. Recently, she injured her right patella. The patient was put in a brace. At the time of emergency room evaluation, her white count was 9.9, hemoglobin 14.5, hematocrit 42.9, and platelet count 127. D-dimer was 3.66. Sodium was 138, potassium 3.9, chloride 106, CO2 of 18, BUN 26, creatinine 1.23. Lactic acid was 4.0, glucose 153, troponin 1.09, and BNP was 374. Urinalysis was negative for leukocyte esterase and negative for nitrites. Chest x-ray showed large hiatal hernia, interstitial patchy parenchymal changes at the left lung base not seen on the prior study, which was worrisome for pneumonia or aspiration pneumonitis. CT angiogram of the chest showed no pulmonary embolism. The patient was treated for community-acquired pneumonia, started on Levaquin, switched to azithromycin and Rocephin by the admitting physician. She went through sepsis protocol. She was given fluids. There was also non ST-elevation myocardial infarction diagnosed likely due to demand ischemia. Also, gross acute kidney injury due to dehydration. The patient was seen by Dr. Copeland, who recommended to do conservative measures since the patient did not want to do any invasive procedures at her age. She underwent a right knee x-ray, which showed comminuted and fracture involving the patella, which did not show significant amount of callus formation to see interval healing. Her troponin was elevated at 0.816 and 0.684, and she was diagnosed with non ST-elevation myocardial infarction. She recovered gradually but she had quite significant amount of generalized weakness, which made us to send her to rehabilitation center for continuation of her PT and OT. Cardiogram was done and it shows ejection fraction of the left ventricle at 50% to 55% and some diastolic dysfunction with mitral annular calcification, moderate mitral regurgitation, and [id number] tricuspid regurgitation. The patient is doing quite well. She was switched to oral levofloxacin. Her 2/2 cultures came back positive for Streptococcus pneumonia as very likely secondary to her infectious process in her lungs. Her respiratory culture came back showing moderate WBCs, many gram-positive rods, 0-5 epithelial cells, moderate gram-positive cocci in pairs and clusters with few gram-variable rods. Clinically, she is doing well. Her vitals, blood pressure is 152/81, temperature is 98.6, O2 saturation is 92% on room air, and respiratory rate is 16. She was evaluated and examined before she was transferred to rehabilitation center. She will stay on heart-healthy diet. She will do PT and OT, and they are going to continue her levofloxacin until the 11 of October. DISCHARGE MEDICATIONS: Other medications at the time of discharge: 1. Zolpidem which is Ambien 5 mg at bedtime p.r.n. 2. Isosorbide mononitrate 30 mg once a day. 3. Amlodipine 2.5 mg once a day. 4. Aspirin 81 mg once a day. 5. Vitamin D3 of 2000 units daily. 6. Multivitamin 1 a day. 7. Ketorolac which is Toradol p.r.n. 8. DuoNeb p.r.n. TIME SPENT: Discharge time took less than 30 minutes. Job ID: [id number]
== END 2018-10-07 16:00 | DRG 871 ==
LOC: ERS 14:34 → 2NO 20:55 → T4-A 10-03 18:26
PROVIDERS: ADMIT Internal Medicine; ATTEND Internal Medicine
DX: A40.3 Sepsis due to Streptococcus pneumoniae (principal); J18.9 Pneumonia, unspecified organism; I21.A1 Myocardial infarction type 2; J96.01 Acute respiratory failure with hypoxia; N17.9 Acute kidney failure, unspecified; I10 Essential (primary) hypertension; E86.0 Dehydration; E87.6 Hypokalemia; Z88.5 Allergy status to narcotic agent; Z79.82 Long term (current) use of aspirin; Z79.899 Other long term (current) drug therapy
CPT/HCPCS: 36415; 51701; 71045; 71275; 80048; 80053; 80069; 81003; 81015; 82553; 83605; 83880; 84484; 85025; 85060; 85379; 87040; 87070; 87077; 87149; 87186; 87205; 93005; 93306; 96361; 96365; A4353; J0456; J0696; J1650; J1885; J1956; J2405; J3370; J7050; J7620; S0028

== ENCOUNTER 2019-08-06 11:06 | Outpatient (CLI) | payer MEDICARE, BC ==
--- NOTE | 2019-08-06 11:42 | MMO ---
Bilateral MAMMO Bilat Screen [facility]. CLINICAL HISTORY: Patient is 89 years old and is seen for screening. The patient has the following family history of breast cancer: sister, 40'S. The patient has no personal history of cancer. VIEWS: The views performed were: bilateral craniocaudal with tomosynthesis and bilateral mediolateral oblique with tomosynthesis. FILMS COMPARED: The present examination has been compared to prior imaging studies performed at [facility] on 07/01/2014, 09/01/2015, 11/14/2016 and 06/28/2018. This study has been interpreted with the assistance of computer-aided detection. MAMMOGRAM FINDINGS: The breasts are heterogeneously dense, which could obscure a lesion on mammography. There are stable benign appearing calcifications seen in both breasts. There are also vascular calcifications. There are no suspicious masses, suspicious calcifications, or new areas of architectural distortion. IMPRESSION: THERE IS NO MAMMOGRAPHIC EVIDENCE OF MALIGNANCY. A ROUTINE FOLLOW-UP MAMMOGRAM IN 1 YEAR IS RECOMMENDED. THE RESULTS OF THIS EXAM WERE SENT TO THE PATIENT. ACR BI-RADS Category 2 - Benign finding MAMMOGRAPHY NOTE: 1. A negative mammogram report should not delay a biopsy if a dominant of clinically suspicious mass is present. 2. Approximately 10% to 15% of breast cancers are not detected by mammography. 3. Adenosis and dense breasts may obscure an underlying neoplasm. Reported by: RERE MENDOZA MD Electonically Signed: [id number]
== END 2019-08-06 11:07 | disposition home or self-care (01) ==
LOC: BICMAMMO 11:06
PROVIDERS: ATTEND Family Medicine
DX: Z12.31 Encounter for screening mammogram for malignant neoplasm of breast (principal); Z80.3 Family history of malignant neoplasm of breast
CPT/HCPCS: 77063; 77067